=== PATIENT | male | born 1990 ===

== ENCOUNTER 2016-11-26 18:30 | Emergency (ER) | payer OTHER ==
[2016-11-26 18:38] VITALS: BP 160/80; PULSE 101; RESP 16; TEMP 98.6; O2SAT 95
--- NOTE | 2016-11-26 19:00 | EDPHY ---
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 He says that he was cleaning off some lettuce from a cutting board when there was a knife underneath that. He did not see it. It struck him in the right index finger over the distal phalanx. Minimal pain with. Worse with palpation TIME OF INJURY: 30 minutes prior to arrival TETANUS STATUS: Up-to-date less than 2 years ago REVIEW OF SYSTEMS: Ten systems reviewed and are negative unless otherwise noted in the HPI EXAMINATION General Appearance: Alert, no distress Head: normocephalic, atraumatic Cardiovascular: Pulses normal throughout. Symmetric radial pulses 2+. Brisk cap refill Neurological: A&O, sensory symmetric, strength symmetric. Skin: Warm and dry, no rash. Laceration to the volar aspect of the left index finger distal phalanx. No obvious foreign body. This is an avulsion laceration. Extremities: Tenderness over the area of laceration. Full range of motion including flexion extension without any deficits of the superficialis or profundus. Neurovascular intact with brisk cap refill. DIFFERENTIAL DIAGNOSES: Including but not limited to laceration, tissue avulsion, complex laceration, laceration with tendon involvement, laceration with complication MDM: 6:55 p.m. Uncomplicated laceration of the right index finger. I have applied a digital block. Proceed with irrigation, reinspection closure. 7:12 p.m. Wound has been irrigated. Upon reinspection, this is a full tissue avulsion. There is no repairable laceration. It is approximately 1 cm x 1.25 cm. He remains neurovascular intact with brisk cap refill. No deficits of the tendinous structures. Surgicel and bulk dressing will be applied. Routine wound care discussed. Follow up with primary care physician. Return here for signs of infection as discussed. He is discharged home stable condition. SUTURE STAPLE REMOVAL: ED Precautions: Worsening pain. Erythema, edema, cyanosis, pallor, paresthesia or anesthesia. SUPERVISION: This patient was independently evaluated without direct examination by the attending physician. Case was discussed with attending physician Source: Patient Exam Limitations: No limitations - Personal History Current Tetanus/Diphtheria Vaccine: Yes Current Tetanus Diphtheria and Acellular Pertussis (TDAP): Yes Tetanus Vaccine Date: 2014 - Medical/Surgical History Hx Asthma: No Hx Chronic Respiratory Disease: No Hx Diabetes: No Hx Cardiac Disease: No Hx Renal Disease: No Hx Cirrhosis: No Hx Alcoholism: No Hx HIV/AIDS: No Hx Splenectomy or Spleen Trauma: No Other PMH: denies - Social History Smoking Status: Never smoked Constitutional: Initial Vital Signs Temperature (C) 98.6 F 11/26/16 18:35 Heart Rate 101 H 11/26/16 18:35 Respiratory Rate 16 11/26/16 18:35 Blood Pressure 160/80 H 11/26/16 18:35 O2 Sat (%) 95 11/26/16 18:35 O2 Delivery Mode Room Air Allergies/Adverse Reactions: No Known Allergies Allergy (Unverified 11/26/16 18:34) Home Medications: Medication Instructions Recorded NK [No Known Home Meds] 11/26/16 Departure - Departure Disposition: Home, Routine, Self-Care Clinical Impression: Avulsion of soft tissue Finger laceration Qualifiers: Encounter type: initial encounter Finger: index finger Damage to nail status: without damage Foreign body presence: without foreign body Laterality: right Qualified Code(s): S61.210A - Laceration without foreign body of right index finger without damage to nail, initial encounter Condition: Good Instructions: Skin Avulsion (ED) Additional Instructions: Daily wound care as discussed. Follow up with primary care physician return here for signs of infection as discussed as needed Referrals: NONE *PRIMARY CARE P,. [Primary Care Provider] - As per Instructions Alberto Tavera MD [Medical Doctor] - As per Instructions
== END 2016-11-26 19:40 | disposition home or self-care (01) ==
PROC: 3E0T3BZ Introduction of Anesthetic Agent into Peripheral Nerves and Plexi, Percutaneous Approach (ICD-10-PCS; principal; 2016-11-26)
DX: S61.210A Laceration without foreign body of right index finger without damage to nail, initial encounter (principal); W26.0XXA Contact with knife, initial encounter; Y92.69 Other specified industrial and construction area as the place of occurrence of the external cause; Y99.0 Civilian activity done for income or pay; Y93.89 Activity, other specified